=== PATIENT | female | born 1975 | race Caucasian/White ===

== ENCOUNTER 2019-12-13 19:25 | Emergency (ER) | payer MEDICARE, MEDICAID ==
[~2019-12-13] VITALS: Ht 165.1 cm; Wt 88.9 kg
[2019-12-13] MEDS ORDERED: KETOROLAC 30 MG/1 ML ONE (19:54)
[2019-12-13] MEDS ORDERED: HYDROcodone/APAP 5/325 TABLET ONE (19:54)
[2019-12-13] MEDS ORDERED: HYDROcodone/APAP 5/325 TABLET PO ONE (20:00)
[2019-12-13] MEDS ORDERED: KETOROLAC 30 MG/1 ML IM ONE (20:00)
--- NOTE | 2019-12-13 20:05 | NUR ---
PT MEDICATED PER EMAR, AND TAKEN TO XRAY WITH TECH.
[2019-12-13 21:06] VITALS: BP 116/55
== END 2019-12-13 21:34 | disposition home or self-care (01) ==
LOC: ED 19:51
DX: S22.41XA Multiple fractures of ribs, right side, initial encounter for closed fracture (principal); S42.024A Nondisplaced fracture of shaft of right clavicle, initial encounter for closed fracture; S20.211A Contusion of right front wall of thorax, initial encounter; M25.511 Pain in right shoulder; R07.89 Other chest pain; R94.31 Abnormal electrocardiogram [ECG] [EKG]; V89.2XXA Person injured in unspecified motor-vehicle accident, traffic, initial encounter; Y93.89 Activity, other specified; Y92.488 Other paved roadways as the place of occurrence of the external cause; Y99.8 Other external cause status
CPT/HCPCS: 71101; 73000; 73030; 93005; 96372; 99284; J1885